=== PATIENT | female | born 1960 | race Caucasian/White ===

== ENCOUNTER 2023-07-25 20:06 | Observation (INO) ==
[2023-07-25] MEDS ORDERED: 0.9 % SODIUM CHLORIDE 1,000 ML IV ONE (20:34)
[2023-07-25] MEDS ORDERED: ONDANSETRON 4 MG/2 ML VIAL IV PRN (20:34)
[2023-07-25] MEDS ORDERED: ceFAZolin 1 GM VIAL IV ONE ×2 (20:39→20:53)
[2023-07-25] MEDS ORDERED: DIPH,PERTUSS(ACELL),TET VAC/PF 0.5 ML SYRINGE IM ONE (20:39)
[2023-07-25] MEDS: HYDROmorphone 1 MG/ML SYRINGE IV PRN ×2 (21:09→22:05)
[2023-07-25 21:19] LABS: Basophils # (Auto) 0.06 K/mcL (0.00-0.30); Basophils % (Auto) 0.5 % (0.0-2.0); Eosinophils # (Auto) 0.28 K/mcL (0.00-0.70); Eosinophils % (Auto) 2.1 % (0.0-7.0); Hematocrit 48.1 % (34.1-44.9); Lymphocytes # (Auto) 6.39 K/mcL (1.50-4.80); Lymphocytes % (Auto) 48.7 % (15.5-49.0); Mean Cell Volume 87.3 fL (80.0-100.0); Mean Corpuscular HGB Conc 33.3 g/dL (31.0-36.0); Mean Platelet Volume 9.2 fL (8.8-12.5); Monocytes # (Auto) 0.73 K/mcL (0.10-0.90); Monocytes % (Auto) 5.6 % (1.0-12.0); Neutrophils % (Auto) 42.8 % (38.0-78.0); Platelet Count 338 K/mcL (140-440); RBC 5.51 M/mcL (3.59-5.38); WBC 13.1 K/mcL (4.5-11.0)
[2023-07-25 21:26] LABS: ALT/SGPT 20 U/L (<40); AST/SGOT 15 U/L (<32); Albumin 4.5 gm/dL (3.2-5.2); Alkaline Phosphatase 106 U/L (39-117); Bilirubin,Direct < 0.2 mg/dL (0-0.3); Bilirubin,Total 0.3 mg/dL (0.1-1.0); Globulin 3.4 gm/dL (2.2-3.7)
[2023-07-25 21:50] LABS: POC Calcium, Ionized 1.22 (1.16-1.32); POC Creatinine 0.6 (0.6-1.2); POC Potassium 3.4 (3.3-5.1)
[2023-07-25] MEDS ORDERED: KETOROLAC 30 MG/ML VIAL IV ONE (23:08)
[2023-07-26] MEDS ORDERED: ONDANSETRON 4 MG/2 ML VIAL IV PRN (00:33)
[2023-07-26] MEDS ORDERED: ACETAMINOPHEN 325 MG TABLET PO PRN (00:33)
[2023-07-26] MEDS ORDERED: HYDROcodone/APAP 5/325MG TABLET PO PRN (00:33)
[2023-07-26] MEDS: 0.9 % SODIUM CHLORIDE 10 ML SYRINGE IV SCH ×3 (00:51→13:10)
[2023-07-26] MEDS: 0.9 % SODIUM CHLORIDE 1,000 ML IV SCH ×2 (00:52→15:52)
[2023-07-26] MEDS ORDERED: HYDROmorphone 0.5 MG/0.5 ML SYRINGE ONE ×2 (01:56→05:37)
[2023-07-26] MEDS: HYDROmorphone 0.5 MG/0.5 ML SYRINGE IV PRN ×3 (05:40→16:25)
[2023-07-26 06:25] LABS: Basophils # (Auto) 0.06 K/mcL (0.00-0.30); Basophils % (Auto) 0.5 % (0.0-2.0); Eosinophils # (Auto) 0.06 K/mcL (0.00-0.70); Eosinophils % (Auto) 0.5 % (0.0-7.0); Hemoglobin 13.2 g/dL (11.2-15.7); Lymphocytes # (Auto) 2.58 K/mcL (1.50-4.80); Lymphocytes % (Auto) 22.5 % (15.5-49.0); Mean Cell Volume 89.3 fL (80.0-100.0); Mean Platelet Volume 9.2 fL (8.8-12.5); Monocytes # (Auto) 0.62 K/mcL (0.10-0.90); Monocytes % (Auto) 5.4 % (1.0-12.0); Neutrophils % (Auto) 70.8 % (38.0-78.0); Platelet Count 277 K/mcL (140-440); RBC 4.48 M/mcL (3.59-5.38); WBC 11.5 K/mcL (4.5-11.0)
[2023-07-26] MEDS ORDERED: DOCUSATE SODIUM 100 MG CAPSULE PO SCH (09:00)
[2023-07-26] MEDS ORDERED: ceFAZolin 2 GM in DEXTROSE 5% IN WATER 50 ML IV SCH (10:00)
[2023-07-26] MEDS ORDERED: fentaNYL 100 MCG/2 ML VIAL IV ONE (10:14)
[2023-07-26] MEDS ORDERED: MAGNESIUM SULFATE 2 GM/50 ML BAG IV ONE (10:14)
[2023-07-26] MEDS ORDERED: KETAMINE 50 MG/ML Syringe IV ONE (10:14)
[2023-07-26] MEDS ORDERED: ROPIVACAINE HCL/PF 30 ML VIAL IJ ONE (10:14)
[2023-07-26] MEDS ORDERED: KETOROLAC 15 MG/ML VIAL ONE (10:14)
[2023-07-26] MEDS ORDERED: LIDOCAINE HCL/PF 100 MG/5 ML SYRINGE IV ONE (10:14)
[2023-07-26] MEDS ORDERED: PROPOFOL 200 MG/20 ML VIAL IV ONE (10:14)
[2023-07-26] MEDS ORDERED: ONDANSETRON 4 MG/2 ML VIAL ONE (10:14)
[2023-07-26] MEDS ORDERED: DEXAMETHASONE 10 MG/ML VIAL ONE (10:14)
[2023-07-26] MEDS ORDERED: LACTATED RINGERS 250 ML IV PRN (11:35)
[2023-07-26] MEDS ORDERED: fentaNYL 100 MCG/2 ML VIAL IV PRN (11:35)
[2023-07-26] MEDS ORDERED: ACETAMINOPHEN 1,000 MG/100 ML BAG IV ONE (11:35)
[2023-07-26] MEDS ORDERED: IPRATROPIUM/ALBUTEROL 3 ML AMPUL.NEB NEB PRN (11:35)
[2023-07-26] MEDS ORDERED: METHOCARBAMOL 1,000 MG/10 ML VIAL IV PRN (11:35)
[2023-07-26] MEDS ORDERED: SENNOSIDES 1 TABLET PO SCH (21:00)
== END 2023-07-26 17:10 | disposition home or self-care (01) ==
LOC: MEDSUR 20:06 → ED 20:06 → MEDSUR 07-26 00:35
PROVIDERS: ADMIT Internal Medicine; ATTEND Orthopaedic Surgery Orthopaedic Surgery of the Spine